=== PATIENT | male | born 1975 | race Caucasian/White ===

== ENCOUNTER 2017-04-06 08:04 | Emergency (ER) | payer MEDICAID ==
[2017-04-06 08:08] VITALS: BP 99/55; TEMP 97.5
[2017-04-06 08:24] VITALS: BMI 25.0
--- NOTE | 2017-04-06 09:37 | ED PDOC ---
HPI: Wound Care - HPI Time Seen by Provider: 04/06/17 08:08 Chief Complaint (Nursing): Trauma Chief Complaint (Provider): Head Laceration History Per: Patient Exam Limitations: no limitations Onset/Duration Of Symptoms: Hrs Current Symptoms Are (Timing): Still Present Location Of Injury: Right: Head, Anterior: Head Quality Of Symptoms: Painful Additional Complaint(s): 41 year old male is brought into the ED by EMS with a laceration to the right side of his head. The patient states that he got too drunk and fell causing injury to the right side of his head. Denies loss of consciousness Patient offers no other medical complaints. No dyspnea, weakness, numbness, neck pain, fever, abd pain, numbness, tingles. No vision changes. FAMILY PROVIDER,NO Past Medical History Reviewed: Historical Data, Nursing Documentation, Vital Signs Vital Signs: Last Vital Signs Temp 97.5 F L 04/06/17 08:07 Pulse 116 H 04/06/17 08:07 Resp 16 04/06/17 08:07 BP 99/55 L 04/06/17 08:07 Pulse Ox 100 04/06/17 08:07 - Medical History PMH: No Chronic Diseases - Surgical History Surgical History: No Surg Hx - Family History Family History: States: Unknown Family Hx - Living Arrangements Living Arrangements: Other (adomic[place]) - Social History Current smoker - smoking cessation education provided: No Ex-Smoker (has not smoked in the last 12 months): No Alcohol: > 2 Drinks/Day Drugs: Denies - Allergies Allergies/Adverse Reactions: Allergies Allergy/AdvReac Type Severity Reaction Status Date / Time No Known Allergies Allergy Verified 04/06/17 08:22 Review of Systems ROS Statement: Except As Marked, All Systems Reviewed And Found Negative Constitutional: Positive for: Other (laceration to the right side of his head) Neurological: Positive for: Headache Physical Exam - Reviewed Nursing Documentation Reviewed: Yes Vital Signs Reviewed: Yes - Physical Exam Appears: Positive for: Non-toxic, No Acute Distress Head Exam: Positive for: NORMAL INSPECTION, NORMOCEPHALIC. Negative for: ATRAUMATIC (right forehead swelling w/ eccymosis; 2cm diagonal superficial laceration to right side of forehead w/ mild tenderness to wound area.) Skin: Positive for: Normal Color, Warm, Dry. Negative for: Rash Eye Exam: Positive for: Normal appearance, EOMI, PERRL, Periorbital swelling ( right sided). Negative for: Nystagmus ENT: Positive for: Normal ENT Inspection, Other (no septal hematoma; no oral laceration). Negative for: Nasal Congestion, Tonsillar Exudate Neck: Positive for: Normal, Painless ROM, Supple Cardiovascular/Chest: Positive for: Regular Rate, Rhythm, Chest Non Tender. Negative for: Tachycardia Respiratory: Positive for: Normal Breath Sounds. Negative for: Wheezing, Respiratory Distress Gastrointestinal/Abdominal: Positive for: Normal Exam, Bowel Sounds, Soft. Negative for: Tenderness, Mass, Guarding Back: Positive for: Normal Inspection. Negative for: L CVA Tenderness, R CVA Tenderness Extremity: Positive for: Normal ROM. 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 Negative for: Motor/Sensory Deficits - ECG O2 Sat by Pulse Oximetry: 100 (RA) Pulse Ox Interpretation: Normal - Progress ED Course And Treament: ct: no acute 1255: Stable. AAOx3. Pain free. 1439: Stable. AAOx3. Ambulated with no issues. Fu with pcp. Tolerated PO. Procedure: Wound Repair - Time Performed Time Performed: 13:01 - Time Out Time Out: Side verified, Site verified - Consent Obtained Consent obtained: Verbal - Performed by Performed by: Attending Physician - Indications Indication(s):: Laceration - Location Location:: Right, Face (forehead) Shape:: Linear Dimensions Length cm: 2 Depth:: Epidermis - Debris Debris:: None - Irrigated Irrigated with ml of normal saline: 1000 ml with betadine - Wound repair method Arelis:: Tissue glue - Patient tolerated procedure Patient Tolerated Procedure:: Well Medical Decision Making Medical Decision Makin Initial Impression 41 y/o male presenting with laceration on the right side of the head Initial Plan: * CT cervical spine * CT head w/o * Maxillofacial w/o contrast * Alcohol serum * Tetanus 0.5ml IM * Reevaluation 1025 CT MAXILLOFACIAL BONES WITHOUT CONTRAST FINDINGS: NASAL BONES: Nasal bone is grossly intact without acute fracture. Maxillary spine is unremarkable. Nasal septum is deviated to the left. ORBITS: Bony orbits are intact. Lamina papyracea are intact. There is [id number] soft tissue swelling overlying the right zygoma, zygomatic O frontal suture region, and preseptal region. There may also be some mild soft tissue swelling seen overlying the nasal bone region. Right globe is intact. Retro-orbital regions are unremarkable. PARANASAL SINUSES/ MASTOIDS: There is mild diffuse mucosal thickening seen in the left maxillary sinus without air-fluid level. There is also mild bilateral ethmoid air cell disease. Frontal sinuses are intact. Mild mucosal thickening is seen in the right maxillary sinus. Sphenoid sinus is unremarkable. Lowe of the sinuses appear grossly intact. There is some probable mild partial obstruction of the left ostiomeatal complex. Right ostiomeatal complex is patent. MAXILLA: Right maxilla is intact and left maxilla are intact. There is soft tissue swelling overlying the right maxilla consistent with soft tissue contusion. MANDIBLE/ TEMPOROMANDIBULAR JOINTS: Unremarkable. SKULL BASE: Unremarkable. TEMPORAL BONES: Middle ears and mastoid grossly unremarkable. OTHER FINDINGS: Mastoid air cells are well aerated. IMPRESSION: No appreciable facial bone fracture. Mild to moderate soft tissue swelling overlying the right anterior maxilla, right zygoma, and right anterior orbit region. Mild left maxillary sinusitis and ethmoid air cell disease. Intact mandible. Documented by Kim Merchant acting as a scribe for Juanito Bay MD. All medical record entries made by the Scribe were at my direction and personally dictated by me. I have reviewed the chart and agree that the record accurately reflects my personal performance of the history, physical exam, medical decision making, and the department course for this patient. I have also personally directed, reviewed, and agree with the discharge instructions and disposition. Disposition - Clinical Impression Clinical Impression: Head injury, Alcohol abuse, Laceration - Patient ED Disposition Is Patient to be Admitted: No Counseled Patient/Family Regarding: Studies Performed, Diagnosis, Need For Followup - Disposition Referrals: [facility] [Outside] - 04/08/17 Disposition: Routine/Home Disposition Time: 14:53 Condition: STABLE Additional Instructions: Return if not better in 3 days. Instructions: Head Injury (ED), Laceration (ED), Abuse of Alcohol (ED) Print Language: ZAMBIAN
[2017-04-06 10:09] VITALS: PULSE 80; RESP 20
--- NOTE | 2017-04-06 10:19 | CT ---
PROCEDURE: CT HEAD WITHOUT CONTRAST. HISTORY: headache COMPARISON: None available. TECHNIQUE: Axial computed tomography images were obtained through the head/brain without intravenous contrast. Radiation dose: Total exam DLP = 1143 mGy-cm. This CT exam was performed using one or more of the following dose reduction techniques: Automated exposure control, adjustment of the mA and/or kV according to patient size, and/or use of iterative reconstruction technique. FINDINGS: HEMORRHAGE: No intracranial hemorrhage. Subdural windows fail to reveal evidence of high density extra-axial acute subdural hematoma BRAIN: No mass effect or edema. No atrophy or chronic microvascular ischemic changes. VENTRICLES: Unremarkable. No hydrocephalus. CALVARIUM: Unremarkable. PARANASAL SINUSES: Mild mucosal changes are seen in the paranasal sinuses without air-fluid level. MASTOID AIR CELLS: Unremarkable as visualized. No inflammatory changes. OTHER FINDINGS: Retro-orbital regions are within normal limits. There is mild soft tissue swelling overlying the right frontal bone region, right zygoma, and right preseptal region of the right orbit. IMPRESSION: Unremarkable CT scan of the brain. No evidence of intracranial hemorrhage or extra-axial fluid collection. No significant cerebral atrophy. No appreciable infarct. Mild soft tissue swelling.
--- NOTE | 2017-04-06 10:26 | CT ---
PROCEDURE: CT MAXILLOFACIAL BONES WITHOUT CONTRAST HISTORY: facial pain COMPARISON: None TECHNIQUE: Contiguous axial CT images of the maxillofacial bones were obtained. Coronal and sagittal reformats were generated. Radiation dose: Total exam DLP = 864 mGy-cm. This CT exam was performed using one or more of the following dose reduction techniques: Automated exposure control, adjustment of the mA and/or kV according to patient size, and/or use of iterative reconstruction technique. FINDINGS: NASAL BONES: Nasal bone is grossly intact without acute fracture. Maxillary spine is unremarkable. Nasal septum is deviated to the left. ORBITS: Bony orbits are intact. Lamina papyracea are intact. There is [id number] soft tissue swelling overlying the right zygoma, zygomatic O frontal suture region, and preseptal region. There may also be some mild soft tissue swelling seen overlying the nasal bone region. Right globe is intact. Retro-orbital regions are unremarkable. PARANASAL SINUSES/ MASTOIDS: There is mild diffuse mucosal thickening seen in the left maxillary sinus without air-fluid level. There is also mild bilateral ethmoid air cell disease. Frontal sinuses are intact. Mild mucosal thickening is seen in the right maxillary sinus. Sphenoid sinus is unremarkable. Lowe of the sinuses appear grossly intact. There is some probable mild partial obstruction of the left ostiomeatal complex. Right ostiomeatal complex is patent. MAXILLA: Right maxilla is intact and left maxilla are intact. There is soft tissue swelling overlying the right maxilla consistent with soft tissue contusion. MANDIBLE/ TEMPOROMANDIBULAR JOINTS: Unremarkable. SKULL BASE: Unremarkable. TEMPORAL BONES: Middle ears and mastoid grossly unremarkable. OTHER FINDINGS: Mastoid air cells are well aerated. IMPRESSION: No appreciable facial bone fracture. Mild to moderate soft tissue swelling overlying the right anterior maxilla, right zygoma, and right anterior orbit region. Mild left maxillary sinusitis and ethmoid air cell disease. Intact mandible.
--- NOTE | 2017-04-06 10:32 | CT ---
PROCEDURE: CT Cervical Spine without contrast HISTORY: <neck pain> COMPARISON: None available. TECHNIQUE: Axial computed tomography images were obtained of the cervical spine without the use of intravenous contrast. Coronal and sagittal reformatted images were created and reviewed. Radiation dose: Total exam DLP = 1061 mGy-cm. This CT exam was performed using one or more of the following dose reduction techniques: Automated exposure control, adjustment of the mA and/or kV according to patient size, and/or use of iterative reconstruction technique. FINDINGS: VERTEBRAE: No fracture. Normal alignment. No destructive bony lesion. DISCS/SPINAL CANAL/NEURAL FORAMINA: There is mild disc space narrowing and endplate spurring seen at C5-6 and to a lesser degree at C6-7. Mild disc bulging is seen at these levels. The C1-C2 articulation is within normal limits without abnormal widening. Dens is intact. No jumped facets are appreciated. Mild uncovertebral changes are noted. Very mild bony neural foraminal narrowing is appreciated at C5-6 and C6-7. Minor endplate changes are also seen at C3-4. Upper thoracic disc spaces are unremarkable but limited by shoulder artifact. PARASPINAL SOFT TISSUES: Unremarkable. OTHER FINDINGS: Visualized thyroid gland is mildly heterogeneous in density but without focal nodule. Lung apices are unremarkable without pneumothorax. Upper ribs are intact as well as the visualized clavicles. IMPRESSION: No evidence of fracture or malalignment. Mild degenerative disc disease.
[2017-04-06 12:54] VITALS: O2SAT 100
== END 2017-04-06 16:30 | disposition home or self-care (01) ==
LOC: H.ER 08:04
DX: S01.01XA Laceration without foreign body of scalp, initial encounter (principal); S00.83XA Contusion of other part of head, initial encounter; W19.XXXA Unspecified fall, initial encounter; Y92.89 Other specified places as the place of occurrence of the external cause; F10.10 Alcohol abuse, uncomplicated; J32.0 Chronic maxillary sinusitis; Z87.891 Personal history of nicotine dependence
CPT/HCPCS: 70450; 70486; 72125; 90471; 90715; 99285; G0480